=== PATIENT | female | born 1995 | race Caucasian/White ===

== ENCOUNTER 2017-08-02 12:11 | Inpatient (IN) | payer OTHER ==
[~2017-08-02] VITALS: Ht 162.6 cm; Wt 116.0 kg
[2017-08-02 12:37] VITALS: BP 125/83
[2017-08-02] MEDS ORDERED: D5%-LACTATED RINGERS 1,000 ML IV SCH (13:50)
[2017-08-02] MEDS ORDERED: OXYTOCIN 30U/ 0.9% NaCL 500ML 500 ML IV PRN (13:50)
[2017-08-02] MEDS ORDERED: OXYTOCIN 30U/ 0.9% NaCL 500ML 500 ML IV ONE (13:50)
[2017-08-02] MEDS ORDERED: LACTATED RINGERS 1,000 ML IV SCH ×2 (13:50→15:09)
[2017-08-02] MEDS ORDERED: FENTANYL PF 100 MCG/2ML ONE (13:56)
[2017-08-02] MEDS ORDERED: ONDANSETRON 2MG/ML, 2ML IVPush PRN (14:00)
[2017-08-02] MEDS ORDERED: FENTANYL PF 100 MCG/2ML IV PRN (14:00)
[2017-08-02] MEDS ORDERED: PLEASE ENTER ALLERGIES MC SCH ×2 (14:00)
[2017-08-02] MEDS ORDERED: FENTANYL PF 100 MCG/2ML IVPush PRN (14:00)
[2017-08-02 14:14] LABS: HEMATOCRIT 37.3 % (34.6-47.8); HEMOGLOBIN 12.5 g/dL (11.7-16.4); WHITE BLOOD COUNT 15.1 x10^3/uL (3.4-10)
[2017-08-02] MEDS ORDERED: FENTANYL/BUPIV./NS/PF 250 ML EPIDCONT ONE (14:28)
[2017-08-02] MEDS ORDERED: LIDOCAINE/PF 1.5%-EPI 1:200K, 30ML ONE ×2 (14:28→14:30)
[2017-08-02] MEDS ORDERED: PLEASE ENTER WEIGHT MC SCH (14:30)
[2017-08-02] MEDS ORDERED: FENTANYL/BUPIV./NS/PF 250 ML EPIDCONT SCH (15:09)
[2017-08-02] MEDS ORDERED: LACTATED RINGERS 1,000 ML IVBOLUS PRN (15:30)
[2017-08-02] MEDS ORDERED: EPHEDRINE 50 MG/ML, 1ML IVPush PRN (15:30)
[2017-08-02] MEDS ORDERED: NALOXONE 0.4 MG/ML, 1ML IVPush PRN (15:30)
[2017-08-02] MEDS ORDERED: LIDOCAINE 1%, 20ML ONE (17:46)
[2017-08-02] MEDS ORDERED: MISOPROSTOL 200 MCG TABLET ONE (17:46)
[2017-08-02] MEDS ORDERED: OXYTOCIN 30U/ 0.9% NaCL 500ML 500 ML ONE ×2 (17:46→21:38)
[2017-08-02] MEDS ORDERED: NEWBORN KIT ONE (19:32)
[2017-08-02] MEDS ORDERED: TERBUTALINE 1 MG/ML, 1ML ONE (20:52)
[2017-08-02] MEDS ORDERED: METOCLOPRAMIDE 5 MG/ML, 2ML IV PRN (21:30)
[2017-08-02] MEDS ORDERED: METHYLERGONOVINE 0.2 MG/ML IM PRN (21:30)
[2017-08-02] MEDS ORDERED: MISOPROSTOL 200 MCG TABLET PR PRN (21:30)
[2017-08-02] MEDS ORDERED: ACETAMINOPHEN 325 MG TABLET PO PRN (21:30)
[2017-08-02] MEDS ORDERED: ONDANSETRON 2MG/ML, 2ML IV PRN (21:30)
[2017-08-02] MEDS ORDERED: OXYcodone/APAP 5/325MG TABLET PO PRN (21:30)
[2017-08-02] MEDS ORDERED: IBUPROFEN 600 MG TABLET ONE (21:33)
[2017-08-02] MEDS: IBUPROFEN 600 MG TABLET PO PRN (21:34)
[2017-08-02] MEDS: OXYTOCIN 30U/ 0.9% NaCL 500ML 500 ML IV SCH (21:39)
[2017-08-02] MEDS ORDERED: PROMETHAZINE 25 MG/ML, 1ML ONE (22:16)
[2017-08-02] MEDS ORDERED: MEPERIDINE/PF 100 MG/ML ONE (22:16)
[2017-08-02 23:30] VITALS: BP 102/54
[2017-08-03 04:15] VITALS: BP 105/67
[2017-08-03 05:54] LABS: HEMATOCRIT 32.4 % (34.6-47.8); HEMOGLOBIN 10.9 g/dL (11.7-16.4); WHITE BLOOD COUNT 16.5 x10^3/uL (3.4-10)
[2017-08-03] MEDS: OXYTOCIN 30U/ 0.9% NaCL 500ML 500 ML IV SCH ×2 (07:05→17:05)
[2017-08-03 07:15] VITALS: BP 128/77
[2017-08-03] MEDS ORDERED: PRENATAL VIT/IRON/FA 1 EACH TABLET ONE (07:41)
[2017-08-03] MEDS: PRENATAL VIT/IRON/FA 1 EACH TABLET PO SCH (07:46)
[2017-08-03] MEDS: DOCUSATE 100 MG CAPSULE PO PRN ×2 (07:46→20:18)
[2017-08-03] MEDS: IBUPROFEN 600 MG TABLET PO PRN ×3 (07:46→20:18)
[2017-08-03 12:00] VITALS: BP 116/77
[2017-08-03 20:15] VITALS: BP 118/76
[2017-08-03] MEDS: OXYcodone/APAP 5/325MG TABLET PO PRN (21:16)
[2017-08-04] MEDS: OXYTOCIN 30U/ 0.9% NaCL 500ML 500 ML IV SCH (03:05)
[2017-08-04] MEDS ORDERED: OXYC-302 PO (06:21)
[2017-08-04] MEDS ORDERED: DOCU-131 PO (06:22)
[2017-08-04] MEDS ORDERED: IBUP-1222 PO (06:23)
[2017-08-04] MEDS: DOCUSATE 100 MG CAPSULE PO PRN (07:26)
[2017-08-04] MEDS: PRENATAL VIT/IRON/FA 1 EACH TABLET PO SCH (07:26)
[2017-08-04] MEDS: OXYcodone/APAP 5/325MG TABLET PO PRN (07:26)
[2017-08-04] MEDS: IBUPROFEN 600 MG TABLET PO PRN (07:26)
[2017-08-04 07:32] VITALS: BP 108/74
== END 2017-08-04 15:30 | disposition home or self-care (01) | DRG 775 ==
LOC: LDOP 12:11 → LDIP 13:05 → 2NW 23:00
PROVIDERS: ADMIT Obstetrics & Gynecology; ATTEND Obstetrics & Gynecology
PROC: 0HQ9XZZ Repair Perineum Skin, External Approach (ICD-10-PCS; principal; 2017-08-02)
PROC: 10E0XZZ Delivery of Products of Conception, External Approach (ICD-10-PCS; 2017-08-02)
PROC: 3E0R3CZ (ICD-10-PCS; 2017-08-02)
PROC: 00HU33Z Insertion of Infusion Device into Spinal Canal, Percutaneous Approach (ICD-10-PCS; 2017-08-02)
PROC: 10907ZC Drainage of Amniotic Fluid, Therapeutic from Products of Conception, Via Natural or Artificial Opening (ICD-10-PCS; 2017-08-02)
PROC: 4A1H74Z Monitoring of Products of Conception, Cardiac Electrical Activity, Via Natural or Artificial Opening (ICD-10-PCS; 2017-08-02)
DX: O76 Abnormality in fetal heart rate and rhythm complicating labor and delivery (principal); Z68.41 Body mass index [BMI] 40.0-44.9, adult; E66.01 Morbid (severe) obesity due to excess calories; O99.214 Obesity complicating childbirth; Z37.0 Single live birth; Z3A.38 38 weeks gestation of pregnancy; O70.0 First degree perineal laceration during delivery
CPT/HCPCS: 36415; 85025; 86850; 86900; J3010; J3490; J2590; J7120